=== PATIENT | male | born 1985 | race Caucasian/White ===

== ENCOUNTER 2019-05-10 13:14 | Emergency (ER) | payer SELFPAY ==
[2019-05-10 13:33] VITALS: BP 133/68; PULSE 72; TEMP 98.1; BMI 21.9
[2019-05-10] MEDS ORDERED: DIPHTH,PERTUSS(ACELL),TET 0.5 ML DISP.SYRIN IM ONE ×2 (14:08→14:11)
--- NOTE | 2019-05-10 14:09 | PDOC ---
History of Present Illness - General Chief Complaint: Laceration Stated Complaint: LAC ON HEAD History Source: Patient Exam Limitations: Clinical Condition - History of Present Illness Initial Comments: 05/10/19 14:12 Patient with no significant past medical history present with complaint of laceration to left side of posterior scalp area while playing soccer this morning with a soccer cleats. Patient report another player increase his foot while he was trying to head the ball cutting his head with bottom of soccer cleats. Denies dizziness, headache, nausea, vomiting, change of vision or blurry vision. Denies any other symptoms patient does not recall last tetanus vaccine Timing/Duration: reports: just prior to arrival Past History - Past Medical History Allergies/Adverse Reactions: Allergies Allergy/AdvReac Type Severity Reaction Status Date / Time No Known Allergies Allergy Verified 05/10/19 13:29 Home Medications: Ambulatory Orders Ibuprofen 800 mg PO Q8H PRN #20 tablet 05/10/19 Asthma: No Cancer: No Cardiac Disorders: No CVA: No COPD: No - Suicide/Smoking/Psychosocial Hx Smoking History: Never smoked Review of Systems - Review of Systems Able to Perform ROS?: Yes Is the patient limited Thai proficient: No Constitutional: No: Malaise, Weakness HEENTM: No: Symptoms Reported, Blurred Vision, Double Vision Respiratory: No: Symptoms reported Cardiac (ROS): No: Symptoms Reported, Lightheadedness, Syncope ABD/GI: No: Symptoms Reported, Nausea, Vomiting Integumentary: Yes: Symptoms Reported, See HPI, Other (laceration to head) Neurological: Yes: Symptoms reported, See HPI, Headache (over laceration area). No: Weakness, Dizziness All Other Systems: Reviewed and Negative *Physical Exam - Vital Signs Last Vital Signs Temp Pulse Resp BP Pulse Ox 98.1 F 72 20 133/68 100 05/10/19 13:30 05/10/19 13:30 05/10/19 13:30 05/10/19 13:30 05/10/19 13:30 - Physical Exam General Appearance: Yes: Nourished, Appropriately Dressed. No: Apparent Distress HEENT: positive: Normal ENT Inspection Neck: positive: Supple Respiratory/Chest: negative: Respiratory Distress, Accessory Muscle Use Cardiovascular: positive: Regular Rhythm, Regular Rate Musculoskeletal: positive: Normal Inspection Integumentary: positive: Normal Color, Other (6cm superficial linear laceration to left side of top of scalp with minimal bleeding. 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 II-XII NML intact, Fully Oriented, Alert, Normal Mood/ Affect, Normal Response Procedures - Laceration/Wound Repair Left Posterior Head Wound Length: 5.0 to 7.5 cm (6cm) Wound Explored: clean, no foreign body present Wound's Depth, Shape: superficial, linear Irrigated w/ Saline: Yes Betadine Prep: Yes Wound Repaired With: [place] (7 jeovany) Layer Closure: No Sterile Dressing Applied: Yes Splint Applied: No Sling Applied: No Medical Decision Making - Medical Decision Making 05/10/19 14:14 Patient with no significant past medical history present with complaint of laceration to left side of posterior scalp area while playing soccer this morning with a soccer cleats. Patient report another player increase his foot while he was trying to head the ball cutting his head with bottom of soccer cleats. Denies dizziness, headache, nausea, vomiting, change of vision or blurry vision. Denies any other symptoms patient does not recall last tetanus vaccine Exam significant for 6 cm superficial linear laceration to top of left side of scalp with minimal bleeding. Wound cleaned with Betadine and hydrogen peroxide. Wound closed with 7 jeovany. Hemostasis achieved. Bacitracin apply to wound. Tetanus vaccine given by nurse. Patient stable for discharge to take Motrin when necessary for pain with strict follow-up if change in symptoms otherwise follow-up in one week for staple removal *DC/Admit/Observation/Transfer Diagnosis at time of Disposition: Laceration of head Qualifiers: Encounter type: initial encounter Location of open wound of head: scalp Foreign body presence: without foreign body Qualified Code(s): S01.01XA - Laceration without foreign body of scalp, initial encounter - Discharge Dispostion Disposition: HOME Condition at time of disposition: Stable Decision to Admit order: No - Prescriptions Prescriptions: Ibuprofen 800 mg PO Q8H PRN #20 tablet PRN Reason: pain - Referrals - Patient Instructions Printed Discharge Instructions: DI for Laceration Repair -- Jeovany, DI for Laceration Repair of the Scalp Additional Instructions: Wound clean and dry for the next 24 hours. Apply bacitracin to wound twice a day as discussed. Follow-up in one week for staple removal - Post Discharge Activity
[2019-05-10] MEDS ORDERED: BACITRACIN 15 GM TUBE TOPICAL OINTMENT TP ONE (14:11)
== END 2019-05-10 14:15 | disposition home or self-care (01) ==
LOC: JERFT 13:14
PROC: 0HQ0XZZ Repair Scalp Skin, External Approach (ICD-10-PCS; principal; 2019-05-10)
PROC: 3E0234Z Introduction of Serum, Toxoid and Vaccine into Muscle, Percutaneous Approach (ICD-10-PCS; 2019-05-10)
DX: S01.01XA Laceration without foreign body of scalp, initial encounter (principal); W21.31XA Struck by shoe cleats, initial encounter; Y93.66 Activity, soccer; Y92.322 Soccer field as the place of occurrence of the external cause
CPT/HCPCS: 90715; 99281-25

== ENCOUNTER 2019-05-17 12:35 | Emergency (ER) | payer SELFPAY ==
[2019-05-17 12:47] VITALS: BP 135/72; PULSE 90; TEMP 98.6; BMI 25.0
--- NOTE | 2019-05-17 13:42 | PDOC ---
History of Present Illness - General Chief Complaint: Suture/Staple Removal(Here) Stated Complaint: STITCH REMOVAL Time Seen by Provider: 05/17/19 13:36 - History of Present Illness Initial Comments: 05/17/19 13:39 34 y/o M w/o CM presents for staple removal from jeovany placed 7 days ago, he has had no sequale Past History - Past Medical History Allergies/Adverse Reactions: Allergies Allergy/AdvReac Type Severity Reaction Status Date / Time No Known Allergies Allergy Verified 05/17/19 12:45 Home Medications: Ambulatory Orders Ibuprofen 800 mg PO Q8H PRN #20 tablet 05/10/19 Asthma: No Cancer: No Cardiac Disorders: No CVA: No COPD: No - Immunization History Immunization Up to Date: Yes - Suicide/Smoking/Psychosocial Hx Smoking History: Never smoked Hx Alcohol Use: Yes Drug/Substance Use Hx: No Review of Systems - Review of Systems Constitutional: Yes: See HPI *Physical Exam - Vital Signs Last Vital Signs Temp Pulse Resp BP Pulse Ox 98.6 F 90 18 135/72 97 05/17/19 12:45 05/17/19 12:45 05/17/19 12:45 05/17/19 12:45 05/17/19 12:45 - Physical Exam Comments: 05/17/19 13:40 Scalp laceration is healed jeovany in place normal skin color and temperature Medical Decision Making - Medical Decision Making 05/17/19 13:41 7 jeovany removed w/o complication with staple remover *DC/Admit/Observation/Transfer Diagnosis at time of Disposition: Removal of jeovany - Discharge Dispostion Disposition: HOME Condition at time of disposition: Stable Decision to Admit order: No - Referrals - Patient Instructions Printed Discharge Instructions: DI for Suture Removal Additional Instructions: Keep area clean and dry for 2 days after 2 days you may wash with soap and water and leave the area open to air. No ointments such as bacatracin or neosporin. Return to the emergency room for any issues - Post Discharge Activity
== END 2019-05-17 13:44 | disposition home or self-care (01) ==
LOC: JERFT 12:35
DX: Z48.02 Encounter for removal of sutures (principal)
CPT/HCPCS: 99281-25